=== PATIENT | female | born 1960 | race Caucasian/White ===

== ENCOUNTER 2019-11-10 16:04 | Outpatient (CLI) | payer SELFPAY ==
--- NOTE | ~2019-11-10 | XR_ITS ---
XR ribs LT 2V w CXR 2V DATE: 11/10/2019 16:27 INDICATION: Left side rib pain near breast after fall. TECHNIQUE: PA and lateral views COMPARISON: 02/14/2016 PA and lateral views FINDINGS: Normal heart size. No hilar or mediastinal enlargement. No pulmonary infiltrate or consol idation, pulmonary vascular congestion or pleural effusion or pneumothorax. Degenerative spurring o f the thoracic spine. Probable recent minimally displaced anterolateral left fifth and sixth rib fractures, corresponding t o area of clinical complaint of pain. IMPRESSION: No active cardiopulmonary disease Probable recent minimally displaced anterolateral left fifth and sixth rib fractures Reviewed, dictated and finalized at location A. IMPRESSION: No active cardiopulmonary disease Probable recent minimally displaced anterolateral left fifth and sixth rib [facility]
== END 2019-11-10 16:05 | disposition home or self-care (01) ==
LOC: CHSIMG 16:07
PROVIDERS: PCP Family Medicine; Visit Provider Family Medicine
DX: R07.89 Other chest pain (principal)
CPT/HCPCS: 71046; 71100

== ENCOUNTER 2020-05-14 13:58 | Outpatient (CLI) | payer SELFPAY ==
--- NOTE | ~2020-05-14 | XR_ITS ---
EXAMINATION: XR chest 2V DATE: 05/14/2020 14:14 INDICATION: Right upper chest pain, recent COVID 19 TECHNIQUE: PA and lateral views of the chest are obtained. COMPARISON: 11/10/2019 FINDINGS: The lungs are free of acute opacities. There is no pleural effusion or pneumothorax. The ca rdiomediastinal silhouette is normal. There is moderate thoracic spondylosis. IMPRESSION: 1. No acute cardiopulmonary abnormality. Reviewed, dictated and finalized at location A. [facility]
== END 2020-05-14 13:59 | disposition home or self-care (01) ==
LOC: CHSIMG 13:59
PROVIDERS: PCP Family Medicine; Visit Provider Family Medicine
DX: R06.09 Other forms of dyspnea (principal)
CPT/HCPCS: 71046

== ENCOUNTER 2020-11-25 14:48 | Outpatient (CLI) | payer SELFPAY ==
--- NOTE | ~2020-11-25 | XR_ITS ---
EXAMINATION: XR chest 2V 11/25/2020 15:11 INDICATION: Tobacco dependence PROCEDURE: 2 view chest COMPARISON: 05/14/2020 FINDINGS: The lungs are clear. The cardiomediastinal silhouette is within normal limits. There are no pleural effusions. There is no pneumothorax suspected. IMPRESSION: 1: NO ACUTE CARDIOPULMONARY DISEASE. Reviewed, dictated and finalized at location A.
== END 2020-11-25 14:49 | disposition home or self-care (01) ==
LOC: CHSIMG 14:51
PROVIDERS: PCP Family Medicine; Visit Provider Family Medicine
DX: R63.4 Abnormal weight loss (principal); F17.200 Nicotine dependence, unspecified, uncomplicated
CPT/HCPCS: 71046